=== PATIENT | male | born 2000 | race Two or more races ===

== ENCOUNTER → 2022-04-06 08:22 | Outpatient (BNVA) | payer SELFPAY | PROVIDERS: Visit Provider Internal Medicine | DX: Z02.79 Encounter for issue of other medical certificate (principal) ==

== ENCOUNTER 2023-06-16 07:01 | Emergency (ER) | payer MEDICAID, SELFPAY ==
[2023-06-16 07:12] VITALS: BP 148/80; PULSE 116; RESP 18; TEMP 38.3; O2SAT 98; BMI 25.1
[2023-06-16] MEDS: Acetaminophen 325 MG TABLET 975 MG PO (07:26)
[2023-06-16 08:00] VITALS: BP 121/72; PULSE 68; RESP 16; TEMP 37.2; O2SAT 98
[2023-06-16 08:26] LABS: IDNOW Serial# 08D9AD1C; Strep A Nucleic Acid Negative (Negative)
--- NOTE | 2023-06-16 08:40 | ED_ITS ---
HPI - General Adult General Chief complaint: Upper Respiratory Symptoms Stated complaint: body fatigue, possible flu like Time Seen by Provider: 06/16/23 08:10 Source: patient Mode of arrival: ambulatory Limitations: no limitations History of Present Illness HPI narrative: Patient is 23-year-old male presenting to the emergency department with complaint of left ear pain sore throat as well as generalized body aches for the past 3 days. Reports his roommate complaint of sore throat this morning as well. Denies fevers or cough. Has not used any [id number] medications for his symptoms. He also complains of ulcers to inside of lower lip. MD complaint: sore throat, body aches Onset (ago): day(s) Radiation: non-radiation Severity: moderate Quality: burning Pain Consistency: constant Relieving factors: none Treatments prior to arrival: none Related Data Previous Rx's Medication Instructions Recorded ibuprofen 600 mg tablet 600 mg PO Q6H PRN fever or pain 06/16/23 #20 tabs penicillin V potassium 500 mg 500 mg PO BID 10 days #20 tabs 06/16/23 tablet Allergies Allergy/AdvReac Type Severity Reaction Status Date / Time No Known Allergies Allergy Verified 06/16/23 07:14 Review of Systems Review of Systems: As per HPI Yes all other systems are reviewed and are negative Constitutional: Constitutional: Reports as per HPI [facility] Social History Social History Advance Directives: No Advance Directives Information Provided: No Physical Exam ED Vital Signs: Vital Signs - 24 hr 06/16/23 07:12 Temperature 101.0 F H Pulse Rate 116 H Respiratory Rate 18 Blood Pressure 148/80 H Pulse Oximetry 98 Oxygen Delivery Method Room Air BMI result Body Mass Index 25.1 Vital signs have been reviewed and appear to be correct. Blood pressure elevated. Heart rate tachycardic. Respiratory rate normal. Temperature febrile. Oxygen saturation normal. Const General: cooperative, healthy appearing and no acute distress Orientation/consciousness: oriented to person, oriented to place, oriented to time and patient oriented x3 Limitations: no limitations HENMT Head: Yes normocephalic and Yes atraumatic Ears: external ears normal, TM's normal bilaterally, EAC's normal and mastoids normal bilaterally General nose exam: Normal external nose present and Normal nasal mucous membranes and turbinates present Face and sinus: Yes face symmetric Mouth: oropharynx normal, moist mucous membranes and Abnormal oral and palatal mucosa present lesions (multiple 1-2mm lesions to oral mucosa of lower lip) Throat: Yes uvula midline, Yes abnormal tonsil (erythema and edema, small amount of exudate), No peritonsillar mass and No uvular edema Eyes Pupils: Equal, round and reactive pupils present Neck Neck: Yes normal visual inspection and Yes supple Lymphatic: no lymphadenopathy noted Resp Effort & Inspection: normal respiratory effort and able to speak in complete sentences Auscultation: clear to auscultation bilaterally Cardio Rate: regular rate Rhythm: regular rhythm Heart sounds: S1 normal heart sound present and S2 normal heart sound present GI Palpation (GI): Soft to palpation and nontender Auscultation: normoactive bowel sounds General: Yes no CVA tenderness Back/Spine/Pelvis Back: no CVA tenderness Skin General skin exam: elasticity normal and turgor normal Neuro General: oriented to person, oriented to place, oriented to time, patient oriented x3, moves all extremities, no focal motor deficits and CN's II-XI intact bilaterally Cranial nerves: Yes Equal, round and reactive pupils present Cognition (Neuro): normal cognition Extrem General: Yes full ROM, Yes no pedal edema and Yes no calf tenderness Psych Mental Status: mental status grossly normal Affect: normal affect Thought process: Normal thought process present Medications Administered Discontinued Medications Generic Name Dose Route Start Last Admin Trade Name Freq PRN Reason Stop Dose Admin Acetaminophen 975 mg 06/16/23 07:15 06/16/23 07:26 Acetaminophen 325 Mg Tablet PO 06/16/23 07:16 975 mg ONCE ONE Administration Medical Decision Making Medical Decision Making [facility] Narrative: Patient is 23-year-old male presenting to the emergency department with complaint of left ear pain sore throat as well as generalized body aches for the past 3 days. On exam patient is awake, A+Ox3, tachycardic, mildly elevated BP, febrile, normal neurological exam without focal deficits, physical exam findings as above. Given reported symptoms and physical exam findings, initial differential includes strep versus viral pharyngitis, tonsillitis, COVID, flu, other viral illness, otitis media, otitis externa, aphtous ulcers, versus herpes simplex. Do not suspect peritonsillar abscess. Swabs for strep, flu, Covid and RSV all negative. Oral lesions most consistent with aphthous ulcers. Advised patient to garlgle with warm salt water daily and use OTC topical treatments for discomfort. Given physical exam findings, will treat for tonsillitis with PCN, advised patient to alternate Tylenol and ibuprofen, drink plenty of fluids and get adequate rest. Instructed patient follow-up with primary care provider. Return precautions discussed. Patient verbalized understanding of and agreement with plan. Differential Diagnosis Differential Diagnoses: The differential diagnosis associated with the presentation includes As per [facility]. Lab Data [facility] Lab Attestation statement: I reviewed the patient's lab results. As per [facility] Labs: Lab Results 06/16/23 Range/Units 07:37 S. pyogenes GrpA SERENA Negative (Negative) External Record Review External record reviewed: Inpatient record, Office record and Outpatient record Prescription Management I considered prescription management with: Antibiotic Discharge Plan Discharge Clinical Impression: Acute tonsillitis, Aphthous ulcer of mouth Patient Disposition: Home, Self-Care Instructions: Canker Sores (ED), Tonsillectomy (DC) Additional Instructions: You were evaluated in the emergency department today for a sore throat, you are being treated for tonsillitis with a course of antibiotics. Please complete the full course as prescribed. You can also gargle with warm salt water several times daily. Please follow-up with your primary care provider this week. Return to the emergency department if you develop worsening pain, difficulty swallowing, shortness of breath, fever not reduced by Tylenol or ibuprofen, persistent vomiting or any other concerning symptoms. Prescriptions: New penicillin V potassium 500 mg tablet 500 mg PO BID 10 Days Qty: 20 0RF ibuprofen 600 mg tablet 600 mg PO Q6H PRN (Reason: fever or pain) Qty: 20 0RF
[2023-06-16 09:17] LABS: Influenza A PCR NEGATIVE (Negative); Influenza B PCR NEGATIVE (Negative); Resp Syncy Virus RNA Qual PCR NEGATIVE (Negative); SARS COV2 PCR INHOUSE NEGATIVE (Negative)
[2023-06-16] MEDS: Ibuprofen 600 MG TABLET PO (10:05)
== END 2023-06-16 10:07 | disposition home or self-care (01) ==
PROVIDERS: Emergency Provider Emergency Medicine
DX: J03.90 Acute tonsillitis, unspecified (principal); K12.0 Recurrent oral aphthae; Z20.822 Contact with and (suspected) exposure to COVID-19; Z20.828 Contact with and (suspected) exposure to other viral communicable diseases; H92.02 Otalgia, left ear
CPT/HCPCS: 0241U; 87651; 99283; 99285

== ENCOUNTER 2024-04-01 06:49 | Emergency (ER) | payer MEDICAID, SELFPAY ==
--- NOTE | ~2024-04-01 | XR_ITS ---
EXAMINATION: XR CHEST CLINICAL INFORMATION: COVID positive. Ongoing Cough. COMPARISON: None available. TECHNIQUE: 2 views of the chest were obtained. FINDINGS: Cardiac silhouette is normal in size. The lungs are well aerated. There is no lobar consolidation. No pleural effusion or pneumothorax. No acute osseous abnormality. XR/XR chest 2V IMPRESSION: No acute pulmonary pathology. Electronically signed by: Wing Christensen MD 04/01/2024 07:51 AM EDT
[2024-04-01 06:52] VITALS: BP 129/83; PULSE 85; RESP 20; TEMP 36.6; O2SAT 96; BMI 26.6
--- NOTE | 2024-04-01 07:02 | ED.GENADULT ---
HPI - General Adult General Chief complaint: Upper Respiratory Symptoms Stated complaint: C19 POS over a week, severe cough Time Seen by Provider: 04/01/24 07:02 Source: patient Mode of arrival: ambulatory Limitations: no limitations History of Present Illness ED Provider: Matthew [facility] narrative: Patient is a 23-year-old male, tested positive for Covid on 03/24 presenting to the emergency department with ongoing productive cough. Sputum clear/yellow. Denies fevers chest pain, palpitations. Denies other complaints. Has been using OTC Robitussin with little relief. Cough interfering with sleep. MD complaint: cough Onset (ago): week(s) Associated symptoms: denies other symptoms Treatments prior to arrival: other Related Data Previous Rx's ?Medication ?Instructions ?Recorded ibuprofen 600 mg tablet 600 mg PO Q6H PRN fever or pain 06/16/23 #20 tabs penicillin V potassium 500 mg 500 mg PO BID 10 days #20 tabs 06/16/23 tablet albuterol sulfate 90 mcg/actuation 2 puff inhalation Q4-6H PRN 04/01/24 aerosol inhaler shortness of breath or wheezing #6.7 grams benzonatate 100 mg capsule 100 mg PO TID PRN cough #20 caps 04/01/24 Allergies Allergy/AdvReac Type Severity Reaction Status Date / Time No Known Allergies Allergy Verified 04/01/24 06:56 Review of Systems Review of Systems: As per HPI. Yes all other systems are reviewed and are negative Constitutional: Constitutional: Reports as per HPI [facility] Social History Social History Advance Directives: No Advance Directives Information Provided: No Physical Exam ED Vital Signs: Vital Signs - 24 hr 04/01/24 06:52 Temperature 97.9 F Pulse Rate 85 Respiratory Rate 20 Blood Pressure 129/83 Pulse Oximetry 96 Oxygen Delivery Method Room Air BMI result Body Mass Index 26.6 Vital signs have been reviewed and appear to be correct. Blood pressure normal. Heart rate normal. Respiratory rate normal. Temperature normal. Oxygen saturation normal. Const General: cooperative, healthy appearing and no acute distress Orientation/consciousness: oriented to person, oriented to place, oriented to time and patient oriented x3 Limitations: no limitations HENMT Head: Yes normocephalic and Yes atraumatic Ears: external ears normal General nose exam: Normal external nose present Face and sinus: Yes face symmetric Mouth: oropharynx normal and moist mucous membranes Throat: Yes uvula midline Eyes Pupils: Equal, round and reactive pupils present Neck Neck: Yes normal visual inspection and Yes supple Resp Effort & Inspection: normal respiratory effort and able to speak in complete sentences Auscultation: clear to auscultation bilaterally Cardio Rate: regular rate Rhythm: regular rhythm Heart sounds: S1 normal heart sound present and S2 normal heart sound present GI Palpation (GI): Soft to palpation and nontender Auscultation: normoactive bowel sounds General: Yes no CVA tenderness Back/Spine/Pelvis Back: no CVA tenderness Skin General skin exam: elasticity normal and turgor normal Neuro General: oriented to person, oriented to place, oriented to time, patient oriented x3, moves all extremities, no focal motor deficits and CN's II-XI intact bilaterally Cranial nerves: Yes Equal, round and reactive pupils present Cognition (Neuro): normal cognition Extrem General: Yes full ROM, Yes no pedal edema and Yes no calf tenderness Psych Mental Status: mental status grossly normal Affect: normal affect Thought process: Normal thought process present Medical Decision Making Medical Decision Making [facility] Narrative: Patient is a 23-year-old male, tested positive for Covid on 03/24 presenting to the emergency department with ongoing productive cough. On exam patient is awake, A+Ox3, VS WNL, afebrile, normal neurological exam without focal deficits, physical exam findings as above. Given reported symptoms and physical exam findings, initial differential includes bronchitis, pneumonia, ongoing Covid symptoms. X-ray notable for no evidence of pneumonia. My interpretation is in agreement with the radiologist's interpretation. Patient updated on results and all questions answered. Will send prescriptions for benzonatate and albuterol inhaler. Follow up with PCP. Return precautions discussed. Patient verbalized understanding of and agreement with plan. Differential Diagnosis Differential Diagnoses: The differential diagnosis associated with the presentation includes As per [facility] Independent Interpretation I performed an independent interpretation of an: Plain X-Ray Interpretation: No evidence of pneumonia on chest xray Radiology Impression Discussion of test interpretation with radiology: I have reviewed the radiologist's reading. Radiologist Impression: XR/XR chest 2V IMPRESSION: No acute pulmonary pathology. External Record Review External record reviewed: Inpatient record, Office record and Outpatient record Prescription Management I considered prescription management with: Other Discharge Plan Discharge Clinical Impression: COVID-19, Cough Patient Disposition: Home, Self-Care Instructions: Upper Respiratory Infection (DC), Acute Cough (ED), COVID-19 (Coronavirus Disease 2019) (ED) Additional Instructions: You were evaluated in the emergency department today for cough and Covid infection. Your x-ray did not show evidence of pneumonia. You are being prescribed a cough medicine which you can use every 8 hours. You are also being prescribed an inhaler which you can use for shortness of breath. Follow up with your PCP. Return if you develop worsening shortness of breath or difficulty breathing, fever 100.4F or greater, chest pain, or any other new/concerning symptoms. Prescriptions: New benzonatate 100 mg capsule 100 mg PO TID PRN (Reason: cough) Qty: 20 0RF albuterol sulfate 90 mcg/actuation HFA aerosol inhaler 2 puff inhalation Q4-6H PRN (Reason: shortness of breath or wheezing) Qty: 6.7 0RF No Action penicillin V potassium 500 mg tablet 500 mg PO BID 10 Days Qty: 20 0RF ibuprofen 600 mg tablet 600 mg PO Q6H PRN (Reason: fever or pain) Qty: 20 0RF Print Language: [place]
[2024-04-01 08:21] VITALS: BP 123/80; PULSE 68; RESP 15; TEMP 36.3; O2SAT 97
[2024-04-01 08:34] VITALS: BP 123/80; PULSE 68; RESP 15; TEMP 36.3; O2SAT 97
== END 2024-04-01 08:34 | disposition home or self-care (01) ==
PROVIDERS: Emergency Provider Emergency Medicine Emergency Medical Services
DX: U07.1 COVID-19 (principal); R05.9 Cough, unspecified
CPT/HCPCS: 71046; 99283

== ENCOUNTER 2024-05-02 09:16 | Emergency (ER) | payer OTHER, SELFPAY ==
[2024-05-02 09:18] VITALS: BP 134/72; PULSE 77; RESP 20; TEMP 37.1; O2SAT 99; BMI 27.8
== END 2024-05-02 15:44 | disposition left against medical advice (07) ==
LOC: HO.ED 15:42
PROVIDERS: Emergency Provider Emergency Medicine
DX: M25.512 Pain in left shoulder (principal)
CPT/HCPCS: 99281